=== PATIENT | male | born 1995 ===

== ENCOUNTER 2023-07-30 09:05 | Emergency (ER) | payer OTHER, SELFPAY ==
--- NOTE | ~2023-07-30 | US_ITS ---
EXAMINATION: US SCROTUM US scrotum Doppler CLINICAL INFORMATION: Left flank pain radiating to the left groin. Question presence of testicular torsion. COMPARISON: CT imaging of abdomen and pelvis from 07/30/2023 TECHNIQUE: A sonogram of the scrotum was performed assessing keith-scale appearance and color Doppler flow. Spectral Doppler analysis of the arterial and venous flow were performed in the testes bilaterally. FINDINGS: The color Doppler images show symmetric appearance of arterial and venous flow within each testicle. The waveforms are normal. There is no testicular torsion. The right testicle is 4.2 x 2 x 2.6 cm. A 0.7 x 1.1 x 0.7 cm hypoechoic, slightly lobulated lesion of the mid testicle has a hypervascular appearance on the color Doppler images (images 18-20 of 60). A 0.8 x 0.6 x 0.7 cm hypoechoic lesion in the lower third of the tectum testicle also has a hypervascular appearance on color Doppler images (images 21-23). There is no testicular microlithiasis. The left testicle is 4.8 x 2.4 x 3.1 cm and it has normal echotexture. No left-sided microlithiasis or mass. A small cyst within the left epididymis measures up to 0.4 cm. Otherwise, the right and left epididymis are unremarkable. There is no hydrocele or varicocele. US/US scrotum doppler IMPRESSION: * No evidence of testicular torsion. * There are two hypoechoic, hypervascular foci in the right testicle. These are indeterminate lesions. If deemed clinically appropriate, pursue further workup with serum tumor markers (e.g., AFP, hCH, LDH) and consultation with urology surgery service. An old inflammatory/granulomatous disease process involving the testicle would be included in the differential.
--- NOTE | ~2023-07-30 | CT_ITS ---
EXAMINATION: CT ABDOMEN AND PELVIS WITHOUT CONTRAST CLINICAL INFORMATION: Pain of left flank. COMPARISON: None available. TECHNIQUE: Multidetector volumetric imaging was performed from the superior aspect of the liver through the pubic symphysis. Sagittal and coronal reformatted images were obtained on the technologist's workstation. This CT examination was performed using dose optimization techniques as appropriate, variously including the following: *Automated exposure control *Adjustment of mA and/or kV according to patient size (this includes techniques or standardized protocols for targeted exams where dose is matched to indication/reason for exam; i.e. extremities or head) *Use of iterative reconstruction technique DLP: 676 mGy-cm FINDINGS: LUNG BASES: No pulmonary consolidation or pleural effusion. There is minimal atelectasis in dependent aspect of each lower lobe. HEPATOBILIARY: Liver has normal size, shape, and attenuation. Gallbladder has a normal appearance. No dilated bile ducts. PANCREAS: No edema, pancreatic ductal dilatation or mass. SPLEEN: Normal. ADRENAL GLANDS: Normal. KIDNEYS AND URETERS: Kidneys are normal in size. 0.3 cm calyceal stone is present in the lower pole of the right kidney. There are no calyceal stones within the left kidney. However, mild left hydronephrosis is present. There is negligible dilatation of the left ureter. A 0.3 cm stone is present at the left ureterovesical junction (image [id number], series 4). BLADDER: Underdistended and grossly normal. No perivesical edema. BOWEL AND PERITONEUM: Stomach and small bowel are unremarkable. No dilated loops. The appendix is normal. No overt colonic wall thickening or mesenteric fat stranding. No free fluid or pneumoperitoneum. ABDOMINAL WALL: Unremarkable. VASCULATURE: Unremarkable. LYMPH NODES: No pathologic sized lymph nodes in the abdomen or pelvis. No inguinal lymphadenopathy. PELVIC VISCERA: Unremarkable. MUSCULOSKELETAL: No acute or suspicious osseous abnormality. CT/CT abdomen pelvis wo IV con IMPRESSION: * Mild left hydronephrosis secondary to presence of a 0.3 cm stone at the left ureterovesical junction. * There is a small calyceal stone of the lower pole of the right kidney. Otherwise, right kidney is unremarkable.
[2023-07-30 09:06] VITALS: BP 163/77; PULSE 64; RESP 20; TEMP 37.1; O2SAT 100; BMI 22.4
--- NOTE | 2023-07-30 09:26 | ED.ABDPAIN ---
HPI - Abdominal Pain General Chief Complaint: Abdominal Pain Stated Complaint: kidney stones ? Time Seen by Provider: 07/30/23 09:12 History of Present Illness HPI narrative: Patient is a 28-year-old male presents today with having sudden onset of left flank pain radiating down to the left groin area 10/10 very sharp. Denies any bloody urine. Denies any history of hernia. Positive nausea. Pain on urination. Has a history of kidney stones in the past. Patient complaining of pain that is 10/10. Symptoms not made worse with movement. Related Data Previous Rx's Medication Instructions Recorded ibuprofen 400 mg tablet 400 mg PO Q6H PRN pain #20 tabs 07/30/23 ondansetron 4 mg disintegrating 4 mg PO TID PRN nausea and 07/30/23 tablet vomiting 5 days #10 tabs oxycodone 5 mg tablet 5 mg PO Q8H PRN pain #7 tabs 07/30/23 tamsulosin 0.4 mg capsule (Flomax) 0.4 mg PO DAILY #7 caps 07/30/23 Allergies Allergy/AdvReac Type Severity Reaction Status Date / Time No Known Allergies Allergy Verified 07/30/23 09:10 Review of Systems Review of Systems Positive left-sided flank pain Yes all other systems are reviewed and are negative [facility] Past Medical History Attestation statement: The following information was validated with the patient. Social History Social History Advance Directives: No Physical Exam ED Vital Signs: Vital Signs - 24 hr 07/30/23 09:06 07/30/23 12:21 Temperature 98.8 F Pulse Rate 64 62 Respiratory Rate 20 16 Blood Pressure 163/77 H 131/63 Pulse Oximetry 100 97 Oxygen Delivery Method Room Air Room Air BMI result Body Mass Index 22.4 Appearance: Alert. Oriented X3. No acute distress. Eyes: Pupils equal, round and reactive to light. ENT: Pharynx normal. Neck: Normal inspection. Neck supple. No lymph nodes noted. No crepitus CVS: Normal heart rate and rhythm. Pulses normal. Normal S1 and S2 Respiratory: No respiratory distress. Breath sounds normal. No Wheezing. No rales Abdomen: Soft and nontender. No rigidity. No distention. good BS x4 Skin: Skin warm and dry. Normal skin color. Normal skin turgor. exam done with nursing present. There is no testicular tenderness on palpation. Extremities: No lower extremity edema. Neurovascular intact to all extremities. No Lacerations. No Rash Neuro: Oriented X 3. No motor deficit. No sensory deficit. Moving all extermities. No slurred speech Medical Decision Making Medical Decision Making [facility] Narrative: CT scan of the abdomen was done as patient's pain radiate down to testicle. An ultrasound was done to rule out the possibility of torsion. The CT showed a 3 mm stone in the UVJ likely causing patient's symptoms patient's urine showed no signs of infection patient's pain is now under control kidney function is normal will have patient follow-up with urology on an outpatient basis. The ultrasound of the testicle showed 2 nonspecific lesion. These findings discussed with patient. He will need follow-up on an outpatient basis with urology for this as well. Currently pain is controlled kidney function normal no distress will discharge home. Differential Diagnosis Differential Diagnoses: The differential diagnosis associated with the presentation includes Testicular torsion, hernia, diverticulitis, renal colic Admission/Observation Consideration of admission/observation: Escalation of care including admission/observation considered Lab Data [facility] Lab Attestation statement: I reviewed the patient's lab results. 07/30/23 09:40 07/30/23 09:40 Labs: Lab Results 07/30/23 07/30/23 Range/Units 09:34 09:40 WBC 10.8 (4.8-10.8) X10*3/uL RBC 5.52 (4.60-5.80) X10*6/uL Hgb 15.9 (14.0-18.0) g/dl Hct 47.4 (42.0-52.0) % MCV 85.9 (80.0-98.0) fL MCH 28.8 (27.0-33.0) pg MCHC 33.5 (31.0-36.0) g/dl RDW 12.8 (11.0-16.0) % Plt Count 219 (160-400) X10*3/uL MPV 9.8 (9.4-12.4) fL Immature Gran % (Auto) 0.7 H (0.0-0.4) % Neut % (Auto) 78.2 H (45-73) % Lymph % (Auto) 14.3 L (20-40) % Dolores % (Auto) 5.1 (2-11) % Eos % (Auto) 1.1 (0-4) % Baso % (Auto) 0.6 (0-2) % Lymph # (Auto) 1.5 (1.2-4.9) X10*3/uL Dolores # (Auto) 0.6 (0.1-1.2) X10*3/uL Eos # (Auto) 0.1 (0.0-0.4) X10*3/uL Baso # (Auto) 0.1 (0.0-0.2) X10*3/uL Abs Immat Gran (auto) 0.08 H (0.00-0.03) X10*3/uL Absolute Neuts (auto) 8.4 H (2.0-8.3) x10*3/uL Absolute Nucleated RBC 0.000 (0.0-0.012) X10*3/uL Nucleated RBC % (auto) 0.0 (0.0-0.2) /100WBC Sodium 142 (135-145) mmol/L Potassium 3.5 (3.3-5.1) mmol/L Chloride 106 (96-108) mmol/L Carbon Dioxide 25 (22-29) mmol/L Anion Gap 15 (12-20) BUN 17 H (9-16) mg/dL Creatinine 1.08 (0.5-1.4) mg/dL Estim Creat Clear Calc 105.8 Estimated GFR > 60 Random Glucose 129 H (60-115) mg/dL Calcium 9.7 (8.4-10.2) mg/dL Urine Color Yellow Urine Appearance Clear Urine pH 5.5 (5.0-9.0) Ur Specific Hutchinson 1.025 (1.005-1.025) Urine Protein 30 (1+) H (Neg-Trace) mg/dL Urine Glucose (UA) Negative (Negative) mg/dL Urine Ketones Negative (Negative) mg/dL Urine Blood Negative (Negative) Urine Nitrite Negative (Negative) Ur Leukocyte Esterase Negative (Negative) Urine RBC 0-2 (0-2) /HPF Urine WBC 0-5 (0-5) /HPF Ur Squamous Epith Cells 0-2 (0-2) /HPF Urine Bacteria None Seen (None Seen) Hyaline Casts 0-2 (0-2) /LPF Radiology Impression Discussion of test interpretation with radiology: I have reviewed the radiologist's reading. Radiologist Impression: I reviewed radiology's reading of the ultrasound and the CT scan Medications Administered Discontinued Medications Generic Name Dose Route Start Last Admin Trade Name Freq PRN Reason Stop Dose Admin Hydromorphone HCl 0.5 mg 07/30/23 09:25 07/30/23 09:46 Hydromorphone Hcl 0.5 Mg/0.5 Ml Syringe IVPUSH 07/30/23 09:26 0.5 mg ONCE ONE Administration Protocol Hydromorphone HCl 0.5 mg 07/30/23 10:31 07/30/23 10:37 Hydromorphone Hcl 0.5 Mg/0.5 Ml Syringe IVPUSH 07/30/23 10:32 0.5 mg ONCE ONE Administration Protocol Sodium Chloride 1,000 mls @ 999 mls/hr 07/30/23 09:30 07/30/23 09:50 Ns IV 07/30/23 10:30 999 mls/hr .Q1H1M HIEN Administration Ketorolac Tromethamine 30 mg 07/30/23 09:25 07/30/23 09:46 Ketorolac Tromethamine 30 Mg/Ml Vial IVPUSH 07/30/23 09:26 30 mg ONCE ONE Administration Discharge Plan Discharge Clinical Impression: Renal colic Patient Disposition: Home, Self-Care Instructions: Renal Colic (ED) Additional Instructions: * There are two hypoechoic, hypervascular foci in the right testicle. These are indeterminate lesions. If deemed clinically appropriate, pursue further workup with serum tumor markers (e.g., AFP, hCH, LDH) and consultation with urology surgery service. An old inflammatory/granulomatous disease process involving the testicle would be included in the differential. Nonspecific finding was noted on the ultrasound of your testicle. Please follow-up with urology for this. Please follow-up for the kidney stone as well. Prescriptions: New tamsulosin [Flomax] 0.4 mg capsule 0.4 mg PO DAILY Qty: 7 0RF ibuprofen 400 mg tablet 400 mg PO Q6H PRN (Reason: pain) Qty: 20 0RF ondansetron 4 mg tablet,disintegrating 4 mg PO TID PRN (Reason: nausea and vomiting) 5 Days Qty: 10 0RF oxycodone 5 mg tablet 5 mg PO Q8H PRN (Reason: pain) Qty: 7 0RF Rx Instructions: Partial Fill upon patient request. Referrals: Kurt Polanco MD [Physician] - 08/02/23
[2023-07-30 09:44] LABS: MANUAL DIFF FLAG NO
[2023-07-30 09:45] LABS: Appearance Urine Clear; Color Urine Yellow; Glucose Urine UA Negative (Negative); Leukocyte Esterase Urine Negative (Negative); Nitrite Urine Negative (Negative); PH 5.5 (5.0-9.0); Specific Gravity - Urine 1.025 (1.005-1.025); UMIC TRIGGER UACC YES; Urine Blood Negative (Negative); Urine Ketones Negative (Negative); Urine Protein 30 (1+) mg/dL (Neg-Trace)
[2023-07-30] MEDS: HYDROmorphone HCl 0.5 MG/0.5 ML SYRINGE IVPUSH ×2 (09:46→10:37)
[2023-07-30] MEDS: Ketorolac Tromethamine 30 MG/ML VIAL IVPUSH (09:46)
[2023-07-30 09:48] LABS: Basophils Absolute Auto 0.1 X10*3/uL (0.0-0.2); Basophils Percent Auto 0.6 % (0-2); Eosinophils Absolute Auto 0.1 X10*3/uL (0.0-0.4); Eosinophils Percent Auto 1.1 % (0-4); Hematocrit 47.4 % (42.0-52.0); Hemoglobin 15.9 g/dl (14.0-18.0); Imm Gran Abs Auto 0.08 X10*3/uL (0.00-0.03); Imm Gran Pct Auto 0.7 % (0.0-0.4); Lymphocytes Absolute Auto 1.5 X10*3/uL (1.2-4.9); Lymphocytes Percent Auto 14.3 % (20-40); Mean Corpuscular HGB Conc 33.5 g/dl (31.0-36.0); Mean Corpuscular Hemoglobin 28.8 pg (27.0-33.0); Mean Corpuscular Volume 85.9 fL (80.0-98.0); Mean Platelet Volume 9.8 fL (9.4-12.4); Monocytes Absolute Auto 0.6 X10*3/uL (0.1-1.2); Monocytes Percent Auto 5.1 % (2-11); Neutrophils Absolute Auto 8.4 x10*3/uL (2.0-8.3); Neutrophils Percent Auto 78.2 % (45-73); Platelet Count 219 X10*3/uL (160-400); Red Blood Count 5.52 X10*6/uL (4.60-5.80); Red Cell Distribution Width 12.8 % (11.0-16.0); White Blood Count 10.8 X10*3/uL (4.8-10.8)
[2023-07-30 09:49] LABS: Bacteria Urine None Seen (None Seen); Hyaline Casts Urine 0-2 /LPF (0-2); RBC Urine 0-2 /HPF (0-2); Squamous Epithelial Cell Urine 0-2 /HPF (0-2); WBC Urine 0-5 /HPF (0-5)
[2023-07-30] MEDS: 0.9 % Sodium Chloride 1,000 ML 999 ML IV (09:50)
[2023-07-30 10:08] LABS: Anion Gap 15 (12-20); Blood Urea Nitrogen 17 mg/dL (9-16); Calcium 9.7 mg/dL (8.4-10.2); Carbon Dioxide 25 mmol/L (22-29); Chloride 106 mmol/L (96-108); Creatinine Clr Calc Pharmacy 105.8; Estimated Glomerular Filt Rate > 60; Glucose Random 129 mg/dL (60-115); Potassium 3.5 mmol/L (3.3-5.1); Sodium 142 mmol/L (135-145)
[2023-07-30 12:21] VITALS: BP 131/63; PULSE 62; RESP 16; O2SAT 97
[2023-07-30 13:18] VITALS: BP 131/63; PULSE 63; RESP 18; TEMP 36.6; O2SAT 98
== END 2023-07-30 13:27 | disposition home or self-care (01) ==
PROVIDERS: Emergency Provider Emergency Medicine Emergency Medical Services
DX: N23 Unspecified renal colic (principal); R10.32 Left lower quadrant pain; Z87.442 Personal history of urinary calculi
CPT/HCPCS: 36415; 74176; 76870; 80048; 81001; 85025; 93975; 96361; 96374; 96375; 96376; 99284; J1170; J1885